=== PATIENT | male | born 1940 | race Caucasian/White ===

== ENCOUNTER 2021-06-07 13:09 | Inpatient (IN) ==
[2021-06-07] MEDS ORDERED: hydrALAZINE 20 MG/1 ML VIAL IV STA (14:04)
[2021-06-07 14:06] LABS: Basophils % 0.3 % (0.0-0.8); Eosinophils % 0.2 % (0.00-10.9); Hematocrit 43.5 VOL% (42.0-52.0); Hemoglobin 13.8 GM/DL (14.0-18.0); Immature Granulocytes % 0.8 %; Immature Granulocytes Absolute 0.08 #; Lymphocytes # 1.2 10*3/uL (1.4-4.0); Lymphocytes % 11.4 % (21.2-54.2); Mean Corpuscular HGB Conc 31.7 GM/DL (32-36); Mean Corpuscular Volume 97.8 FL (87-102); Mean Platelet Volume 9.9 FL (9.6-12.0); Monocytes % 11.5 % (1.7-12.7); Neutrophils % 75.8 % (38.7-73.9); Platelet Count 168 T/CUMM (130-400); Red Blood Count 4.45 MC/CUMM (3.8-5.5); Red Cell Distribution Width 14.4 % (9.3-17.3); White Blood Count 10.5 T/CUMM (4-12)
[2021-06-07 14:22] LABS: PT Patient Result 11.2 SECS (10.5-12.0); Partial Thromboplastin Time 30.8 SECS (23.9-33.8)
[2021-06-07 14:23] LABS: Albumin 3.3 G/DL (3.4-5.0); Bilirubin,Total 0.8 MG/DL (0.20-1.00); Calcium 9.4 MG/DL (8.5-10.1); Potassium 4.2 MMOL/L (3.5-5.1); Total Protein 7.1 G/DL (6.4-8.2)
[2021-06-07] MEDS ORDERED: GLUCAGON 1 MG VIAL IM PRN (17:53)
[2021-06-07] MEDS ORDERED: DEXTROSE 50% 25 GM/50 ML VIAL IV PRN (17:53)
[2021-06-07] MEDS ORDERED: ONDANSETRON 4 MG/2 ML VIAL IV PRN (17:55)
[2021-06-07] MEDS ORDERED: MELATONIN 3 MG TABLET PO PRN (17:59)
[2021-06-07] MEDS ORDERED: NITROGLYCERIN SL 0.4 MG TABLET SL PRN (18:01)
[2021-06-07] MEDS: ASPIRIN EC 81 MG TABLET PO SCH (18:31)
[2021-06-07] MEDS: ATORVASTATIN 40 MG TABLET PO SCH (21:30)
[2021-06-07] MEDS: APIXABAN 2.5 MG TABLET PO SCH (21:30)
[2021-06-07] MEDS: FAMOTIDINE 20 MG TABLET PO SCH (21:30)
[2021-06-07] MEDS: ASCORBIC ACID 500 MG TABLET PO SCH (21:31)
[2021-06-07] MEDS: INSULIN LISPRO 100 UNIT/ML SUBCUT SCH (21:38)
[2021-06-08 04:58] LABS: Basophils % 0.4 % (0.0-0.8); Eosinophils # 0.4 10*3/uL (0.0-0.87); Hematocrit 44.6 VOL% (42.0-52.0); Hemoglobin 14.1 GM/DL (14.0-18.0); Immature Granulocytes % 0.8 %; Immature Granulocytes Absolute 0.06 #; Lymphocytes # 1.2 10*3/uL (1.4-4.0); Mean Corpuscular HGB Conc 31.6 GM/DL (32-36); Mean Corpuscular Volume 97.6 FL (87-102); Mean Platelet Volume 9.9 FL (9.6-12.0); Monocytes % 8.8 % (1.7-12.7); Platelet Count 172 T/CUMM (130-400); Red Blood Count 4.57 MC/CUMM (3.8-5.5); Red Cell Distribution Width 14.4 % (9.3-17.3); White Blood Count 7.9 T/CUMM (4-12)
[2021-06-08 06:27] LABS: Calcium 9.8 MG/DL (8.5-10.1); Osmolality,Calculated 293.4 MOS/KG (273-304); Potassium 3.9 MMOL/L (3.5-5.1); Risk Ratio 2.93; VLDL Cholesterol 37.4 MG/DL
[2021-06-08] MEDS: hydrALAZINE 20 MG/1 ML VIAL IV PRN (06:47)
[2021-06-08 07:07] LABS: Ferritin 203.4 ng/ml (26-388)
[2021-06-08] MEDS: INSULIN LISPRO 100 UNIT/ML SUBCUT SCH ×4 (07:52→23:00)
[2021-06-08] MEDS ORDERED: PANTOPRAZOLE 40 MG TABLET PO SCH (09:00)
[2021-06-08] MEDS: ASPIRIN EC 81 MG TABLET PO SCH (09:05)
[2021-06-08] MEDS: IVERMECTIN 3 MG TABLET PO SCH (09:11)
[2021-06-08] MEDS: LEVOTHYROXINE 137 MCG TABLET PO SCH (09:11)
[2021-06-08] MEDS: APIXABAN 2.5 MG TABLET PO SCH ×2 (09:11→22:59)
[2021-06-08] MEDS: DEXAMETHASONE 4 MG/1 ML VIAL IV SCH (09:11)
[2021-06-08] MEDS: CHOLECALCIFEROL 1,000 UNIT TABLET PO SCH (09:11)
[2021-06-08] MEDS: ASCORBIC ACID 500 MG TABLET PO SCH ×2 (09:11→22:59)
[2021-06-08] MEDS: FAMOTIDINE 20 MG TABLET PO SCH ×2 (09:11→23:00)
[2021-06-08] MEDS: AZITHROMYCIN 250 MG TABLET PO SCH (09:12)
[2021-06-08] MEDS: ZINC GLUCONATE 50 MG TABLET PO SCH (09:12)
[2021-06-08] MEDS: CETIRIZINE 10 MG TABLET PO SCH (09:12)
[2021-06-08] MEDS ORDERED: traMADol 50 MG TABLET PO PRN (15:12)
[2021-06-08] MEDS: ATORVASTATIN 40 MG TABLET PO SCH (22:59)
[2021-06-09 05:51] LABS: Basophils # 0.1 10*3/uL (0.0-0.2); Basophils % 0.6 % (0.0-0.8); Eosinophils # 0.8 10*3/uL (0.0-0.87); Eosinophils % 9.9 % (0.00-10.9); Hematocrit 43.9 VOL% (42.0-52.0); Hemoglobin 13.8 GM/DL (14.0-18.0); Immature Granulocytes % 0.8 %; Immature Granulocytes Absolute 0.06 #; Lymphocytes # 1.6 10*3/uL (1.4-4.0); Lymphocytes % 19.9 % (21.2-54.2); Mean Corpuscular HGB Conc 31.4 GM/DL (32-36); Mean Corpuscular Volume 98.7 FL (87-102); Mean Platelet Volume 9.9 FL (9.6-12.0); Neutrophils % 57.8 % (38.7-73.9); Platelet Count 159 T/CUMM (130-400); Red Blood Count 4.45 MC/CUMM (3.8-5.5); Red Cell Distribution Width 14.4 % (9.3-17.3); White Blood Count 7.8 T/CUMM (4-12)
[2021-06-09 06:07] LABS: Calcium 9.3 MG/DL (8.5-10.1); Osmolality,Calculated 290.5 MOS/KG (273-304); Potassium 3.8 MMOL/L (3.5-5.1)
[2021-06-09] MEDS: INSULIN LISPRO 100 UNIT/ML SUBCUT SCH ×4 (08:30→20:51)
[2021-06-09] MEDS: CETIRIZINE 10 MG TABLET PO SCH (10:23)
[2021-06-09] MEDS: AZITHROMYCIN 250 MG TABLET PO SCH (10:23)
[2021-06-09] MEDS: ASPIRIN EC 81 MG TABLET PO SCH (10:23)
[2021-06-09] MEDS: APIXABAN 2.5 MG TABLET PO SCH ×2 (10:24→20:51)
[2021-06-09] MEDS: LEVOTHYROXINE 137 MCG TABLET PO SCH (10:24)
[2021-06-09] MEDS: FAMOTIDINE 20 MG TABLET PO SCH ×2 (10:26→20:51)
[2021-06-09] MEDS: CHOLECALCIFEROL 1,000 UNIT TABLET PO SCH (10:26)
[2021-06-09] MEDS: ZINC GLUCONATE 50 MG TABLET PO SCH (10:26)
[2021-06-09] MEDS: ASCORBIC ACID 500 MG TABLET PO SCH ×2 (10:30→20:51)
[2021-06-09] MEDS: IVERMECTIN 3 MG TABLET PO SCH (10:33)
[2021-06-09] MEDS: DEXAMETHASONE 4 MG/1 ML VIAL IV SCH (10:37)
[2021-06-09] MEDS ORDERED: POLYETHYLENE GLYCOL POWDER 17 GM PACK PO PRN (15:27)
[2021-06-09] MEDS: ATORVASTATIN 40 MG TABLET PO SCH (20:51)
[2021-06-10 06:31] LABS: Basophils % 0.5 % (0.0-0.8); Eosinophils # 0.6 10*3/uL (0.0-0.87); Eosinophils % 8.6 % (0.00-10.9); Hemoglobin 13.7 GM/DL (14.0-18.0); Immature Granulocytes % 0.9 %; Immature Granulocytes Absolute 0.06 #; Lymphocytes # 1.4 10*3/uL (1.4-4.0); Lymphocytes % 21.6 % (21.2-54.2); Mean Corpuscular HGB Conc 31.9 GM/DL (32-36); Mean Corpuscular Volume 98.4 FL (87-102); Mean Platelet Volume 9.6 FL (9.6-12.0); Monocytes % 11.1 % (1.7-12.7); Neutrophils % 57.3 % (38.7-73.9); Platelet Count 158 T/CUMM (130-400); Red Blood Count 4.37 MC/CUMM (3.8-5.5); Red Cell Distribution Width 14.1 % (9.3-17.3); White Blood Count 6.4 T/CUMM (4-12)
[2021-06-10 06:45] LABS: Calcium 8.9 MG/DL (8.5-10.1); Osmolality,Calculated 290.5 MOS/KG (273-304); Potassium 4.1 MMOL/L (3.5-5.1)
[2021-06-10] MEDS: INSULIN LISPRO 100 UNIT/ML SUBCUT SCH ×4 (07:44→22:02)
[2021-06-10] MEDS: APIXABAN 2.5 MG TABLET PO SCH ×2 (10:02→22:02)
[2021-06-10] MEDS: DEXAMETHASONE 4 MG/1 ML VIAL IV SCH (10:02)
[2021-06-10] MEDS: CETIRIZINE 10 MG TABLET PO SCH (10:03)
[2021-06-10] MEDS: IVERMECTIN 3 MG TABLET PO SCH (10:03)
[2021-06-10] MEDS: ASPIRIN EC 81 MG TABLET PO SCH (10:03)
[2021-06-10] MEDS: CHOLECALCIFEROL 1,000 UNIT TABLET PO SCH (10:03)
[2021-06-10] MEDS: ASCORBIC ACID 500 MG TABLET PO SCH ×2 (10:03→22:03)
[2021-06-10] MEDS: LEVOTHYROXINE 137 MCG TABLET PO SCH (10:03)
[2021-06-10] MEDS: AZITHROMYCIN 250 MG TABLET PO SCH (10:03)
[2021-06-10] MEDS: ZINC GLUCONATE 50 MG TABLET PO SCH (12:37)
[2021-06-10] MEDS: FAMOTIDINE 20 MG TABLET PO SCH ×2 (12:37→22:03)
[2021-06-10] MEDS: hydrALAZINE 20 MG/1 ML VIAL IV PRN (18:07)
[2021-06-10] MEDS: ATORVASTATIN 40 MG TABLET PO SCH (22:02)
[2021-06-11] MEDS: hydrALAZINE 20 MG/1 ML VIAL IV PRN ×2 (00:45→20:52)
[2021-06-11] MEDS: AZITHROMYCIN 250 MG TABLET PO SCH (09:09)
[2021-06-11] MEDS: CHOLECALCIFEROL 1,000 UNIT TABLET PO SCH (09:10)
[2021-06-11] MEDS: ZINC GLUCONATE 50 MG TABLET PO SCH (09:10)
[2021-06-11] MEDS: LEVOTHYROXINE 137 MCG TABLET PO SCH (09:10)
[2021-06-11] MEDS: APIXABAN 2.5 MG TABLET PO SCH ×2 (09:10→20:52)
[2021-06-11] MEDS: CETIRIZINE 10 MG TABLET PO SCH (09:10)
[2021-06-11] MEDS: ASCORBIC ACID 500 MG TABLET PO SCH ×2 (09:10→20:52)
[2021-06-11] MEDS: FAMOTIDINE 20 MG TABLET PO SCH ×2 (09:10→20:52)
[2021-06-11] MEDS: DEXAMETHASONE 4 MG/1 ML VIAL IV SCH (09:11)
[2021-06-11] MEDS: ASPIRIN EC 81 MG TABLET PO SCH (09:11)
[2021-06-11] MEDS: INSULIN LISPRO 100 UNIT/ML SUBCUT SCH ×4 (09:11→23:36)
[2021-06-11] MEDS: IVERMECTIN 3 MG TABLET PO SCH (09:17)
[2021-06-11] MEDS: hydrALAZINE 25 MG TABLET PO SCH ×2 (17:06→20:51)
[2021-06-11] MEDS: ATORVASTATIN 40 MG TABLET PO SCH (20:52)
[2021-06-12] MEDS: hydrALAZINE 20 MG/1 ML VIAL IV PRN (04:08)
[2021-06-12 06:12] LABS: Basophils % 0.2 % (0.0-0.8); Eosinophils % 0.1 % (0.00-10.9); Hematocrit 44.7 VOL% (42.0-52.0); Hemoglobin 15.2 GM/DL (14.0-18.0); Immature Granulocytes % 2.2 %; Immature Granulocytes Absolute 0.26 #; Lymphocytes % 8.7 % (21.2-54.2); Mean Corpuscular Volume 94.5 FL (87-102); Mean Platelet Volume 9.6 FL (9.6-12.0); Monocytes % 5.7 % (1.7-12.7); Neutrophils % 83.1 % (38.7-73.9); Platelet Count 204 T/CUMM (130-400); Red Blood Count 4.73 MC/CUMM (3.8-5.5)
[2021-06-12 06:42] LABS: Calcium 9.5 MG/DL (8.5-10.1); Osmolality,Calculated 302.4 MOS/KG (273-304); Potassium 3.8 MMOL/L (3.5-5.1)
[2021-06-12] MEDS: INSULIN LISPRO 100 UNIT/ML SUBCUT SCH ×4 (10:01→21:16)
[2021-06-12] MEDS: CHOLECALCIFEROL 1,000 UNIT TABLET PO SCH (10:01)
[2021-06-12] MEDS: CETIRIZINE 10 MG TABLET PO SCH (10:02)
[2021-06-12] MEDS: FAMOTIDINE 20 MG TABLET PO SCH ×2 (10:02→21:16)
[2021-06-12] MEDS: ASPIRIN EC 81 MG TABLET PO SCH (10:02)
[2021-06-12] MEDS: LEVOTHYROXINE 137 MCG TABLET PO SCH (10:02)
[2021-06-12] MEDS: hydrALAZINE 25 MG TABLET PO SCH ×2 (10:02→21:16)
[2021-06-12] MEDS: ASCORBIC ACID 500 MG TABLET PO SCH ×2 (10:02→21:16)
[2021-06-12] MEDS: DEXAMETHASONE 4 MG TABLET PO SCH (10:02)
[2021-06-12] MEDS: APIXABAN 2.5 MG TABLET PO SCH ×2 (10:02→21:16)
[2021-06-12] MEDS: ZINC GLUCONATE 50 MG TABLET PO SCH (10:02)
[2021-06-12] MEDS: IVERMECTIN 3 MG TABLET PO SCH (10:03)
[2021-06-12] MEDS: amLODIPine 10 MG TABLET PO SCH (13:04)
[2021-06-12] MEDS ORDERED: BASAGLAR U INSULIN SUBCUT SCH (21:00)
[2021-06-12] MEDS: ATORVASTATIN 40 MG TABLET PO SCH (21:16)
[2021-06-13] MEDS ORDERED: INSULIN GLARGINE 100 UNIT/ML SUBCUT SCH (09:00)
[2021-06-13] MEDS: INSULIN LISPRO 100 UNIT/ML SUBCUT SCH ×2 (10:33→13:56)
[2021-06-13] MEDS: CHOLECALCIFEROL 1,000 UNIT TABLET PO SCH (10:34)
[2021-06-13] MEDS: ASCORBIC ACID 500 MG TABLET PO SCH (10:34)
[2021-06-13] MEDS: FAMOTIDINE 20 MG TABLET PO SCH (10:34)
[2021-06-13] MEDS: ZINC GLUCONATE 50 MG TABLET PO SCH (10:34)
[2021-06-13] MEDS: DEXAMETHASONE 4 MG TABLET PO SCH (10:34)
[2021-06-13] MEDS: CETIRIZINE 10 MG TABLET PO SCH (10:35)
[2021-06-13] MEDS: LEVOTHYROXINE 137 MCG TABLET PO SCH (10:35)
[2021-06-13] MEDS: hydrALAZINE 25 MG TABLET PO SCH (10:35)
[2021-06-13] MEDS: ASPIRIN EC 81 MG TABLET PO SCH (10:35)
[2021-06-13] MEDS: amLODIPine 10 MG TABLET PO SCH (10:35)
[2021-06-13] MEDS: APIXABAN 2.5 MG TABLET PO SCH (10:36)
[2021-06-13 13:22] VITALS: BP 159/90
== END 2021-06-13 13:58 | DRG 177 ==
LOC: EDSEX → N.ED 13:09 → SUATTDRO 18:35 → N.EDINP 18:35 → N.2E 06-08 18:00
PROVIDERS: ADMIT Internal Medicine; ATTEND Internal Medicine